=== PATIENT | female | born 1975 | race Two or more races ===

== ENCOUNTER 2020-11-28 18:11 | Emergency (ER) | payer OTHER ==
[~2020-11-28] VITALS: Ht 172.7 cm; Wt 91.2 kg
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
--- NOTE | 2020-11-28 18:18 | NUR ---
MARYANN MADRID AT BEDSIDE FOR EVAL.
[2020-11-28] MEDS ORDERED: NALO4SPR NS (18:52)
--- NOTE | 2020-11-28 19:04 | NUR ---
Patient discharged to home in stable condition. Written and verbal after care instructions given. Patient verbalizes understanding of instruction.
--- NOTE | 2020-11-28 19:06 | NUR ---
PT IS MEDICALLY CLEARED. STABLE VITALS. [facility] IN STABLE CONDITION.
[2020-11-28 19:11] VITALS: BP 128/77
== END 2020-11-28 19:12 ==
LOC: ER 18:31
DX: T40.601A Poisoning by unspecified narcotics, accidental (unintentional), initial encounter (principal); Z79.899 Other long term (current) drug therapy; V49.49XA Driver injured in collision with other motor vehicles in traffic accident, initial encounter; Y93.89 Activity, other specified; Y92.413 State road as the place of occurrence of the external cause; Y99.8 Other external cause status